=== PATIENT | female | born 2000 | race Caucasian/White ===

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

== ENCOUNTER 2018-02-15 05:25 | Emergency (ER) | payer OTHER ==
[2018-02-15 05:41] VITALS: O2SAT 99
--- NOTE | 2018-02-15 06:12 | C.PDOC ---
History Of Present Illness The patient presents to the ED for evaluation of back pain which has been worsening over the past three days. Patient notes she went to the gym three days ago and did some stretching. Patient reports pain with movement. She denies any direct injury/trauma to the area or extremity numbness/weakness. Time Seen by Provider: 02/15/18 06:11 Chief Complaint (Nursing): Back Pain History Per: Patient History/Exam Limitations: no limitations Onset/Duration Of Symptoms: Days (3) Current Symptoms Are (Timing): Worse Quality Of Discomfort: "Pain" Severity: Mild Pain Scale Rating Of: 3 Previous Symptoms: Back Pain Associated Symptoms: denies: New Weakness, New Numbness Exacerbating Factor(s): Movement Recent travel outside of the [place] States: No Additional History Per: Patient Past Medical History Reviewed: Historical Data, Nursing Documentation, Vital Signs Vital Signs: Last Vital Signs Temp 99 F 02/15/18 05:36 Pulse 86 02/15/18 05:36 Resp 20 02/15/18 05:36 BP 117/76 02/15/18 05:36 Pulse Ox 99 02/15/18 06:31 - Medical History PMH: Asthma, Gastritis Surgical History: Tonsillectomy Family History: States: Unknown Family Hx - Social History Hx Tobacco Use: No Hx Alcohol Use: No Hx Substance Use: No - Immunization History Hx Tetanus Toxoid Vaccination: No Hx Influenza Vaccination: No Hx Pneumococcal Vaccination: No Review Of Systems Constitutional: Negative for: Fever, Chills Cardiovascular: Negative for: Chest Pain, Palpitations Respiratory: Negative for: Cough, Shortness of Breath Gastrointestinal: Negative for: Abdominal Pain Genitourinary: Negative for: Dysuria, Frequency, Incontinence, Hematuria Musculoskeletal: Positive for: Back Pain. Negative for: Neck Pain Skin: Negative for: Rash, Lesions, Jaundice, Bruising Neurological: Negative for: Weakness, Numbness Physical Exam - Physical Exam Appears: Non-toxic, No Acute Distress Skin: Warm, Dry Neck: Supple Chest: Symmetrical, No Deformity, No Tenderness Cardiovascular: Rhythm Regular Respiratory: No Rales, No Rhonchi, No Wheezing Gastrointestinal/Abdominal: Soft, No Tenderness Back: No Vertebral Tenderness, Paraspinal Tenderness (right-sided, thoracic ) Extremity: Normal ROM, Capillary Refill (less than 2 seconds ) Neurological/Psych: Oriented x3 Gait: Steady ED Course And Treatment O2 Sat by Pulse Oximetry: 99 (on RA) Pulse Ox Interpretation: Normal Progress Note: Motrin PO given. Disposition Counseled Patient/Family Regarding: Studies Performed, Diagnosis, Need For Followup, Rx Given - Disposition Referrals: Cynthia Mancia FNP [Advanced Practice Nurse] - Disposition: HOME/ ROUTINE Disposition Time: 06:12 Condition: FAIR Additional Instructions: Please return if symptoms recur Prescriptions: Cyclobenzaprine [Cyclobenzaprine HCl] 10 mg PO Q8H PRN #9 tab PRN Reason: back pain Naproxen [Naprosyn] 1 tab PO BID PRN #25 tab PRN Reason: Pain Instructions: Upper Back Pain (DC), Back Exercises, Back Precautions Forms: [facility] (Bhutanese) - Clinical Impression Clinical Impression: Thoracic back sprain, Thoracic back pain - Scribe Statement The provider has reviewed the documentation as recorded by the Scribe (Eboni Carcamo) Provider Attestation: All medical record entries made by the Scribe were at my direction and personally dictated by me. I have reviewed the chart and agree that the record accurately reflects my personal performance of the history, physical exam, medical decision making, and the department course for this patient. I have also personally directed, reviewed, and agree with the discharge instructions and disposition.
[2018-02-15 06:52] VITALS: BP 124/85; PULSE 81; RESP 18; TEMP 98.5
== END 2018-02-15 06:52 | disposition home or self-care (01) ==
LOC: C.ER 05:25
DX: S23.3XXA Sprain of ligaments of thoracic spine, initial encounter (principal); X50.9XXA Other and unspecified overexertion or strenuous movements or postures, initial encounter; M54.6 Pain in thoracic spine